=== PATIENT | female | born 1930 | race Caucasian/White ===

== ENCOUNTER 2016-04-04 15:29 | Emergency (ER) | payer MEDICARE ==
[~2016-04-04] VITALS: Wt 59.0 kg
[~2016-04-04 15:29] MED LIST: BACITRACIN 500U30 GM PO; BACTROBAN21 NAS; CALCIUM + D 5001 TAB PO; CENTRUM COMPLE1 EACH PO; CENTRUM SILVER1 TA1 PO; CIPROFLOXACIN500 MG PO; COLACE100 MG PO; CYCLOBENZAPRINE10 MG PO; DULCOLAX5 MG PO; FISH OIL1 IU PO; FISH OIL500 M1 PO; FOSAMAX70 MG PO; FUROSEMIDE40 MG PO; KLOR-CON 1010 MEQ PO; LISINOPRIL2.5 MG PO; LISINOPRIL20 MG PO; LISINOPRIL5 MG PO; LYRICA50 MG; MOM30 M1; MOTRIN IB200 MG PO; Motrin,Rufen800 MG PO; NEXIUM; REQUIP1 MG PO; SELEGILINE HCL5 MG PO; SERTRALINE50 MG PO; TYLENOL W/CODEI1 TA2; VICODIN 5/500 505 MG PO; VITAMIN D1000 IU PO; VITAMIN D5000 I3 PO; ZOFRAN ODT4 MG SL
[2016-04-04] MEDS ORDERED: LISINOPRIL-HYDR1 TAB PO (15:42)
[2016-04-04] MEDS ORDERED: OSTEO BI-FLEX1 EAC2 PO (15:43)
[2016-04-04 16:21] LABS: BILIRUBIN NEGATIVE (NEGATIVE); BLOOD NEGATIVE (NEGATIVE); CLARITY CLEAR (CLEAR); COLOR YELLOW (YELLOW); GLUCOSE NEGATIVE (NEGATIVE); KETONE NEGATIVE (NEGATIVE); LEUKO ESTERASE NEGATIVE (NEGATIVE); NITRITE NEGATIVE (NEGATIVE); PH 5.5 (5.0-9.0); PROTEIN NEGATIVE (NEGATIVE); UROBILINOGEN 0.2 E.U./dl (0.2-1.0)
[2016-04-04 16:33] LABS: URINE REFLEX COMMENT NO (NO)
[2016-04-04 16:53] LABS: BASO % 0.1 % (0.0-1.0); EOS # 0.1 10*3/uL (0.0-0.4); HEMATOCRIT 41.8 % (37.0-47.0); LYMPH # 1.8 10*3/uL (1.3-4.4); LYMPH % 25.6 % (27.0-41.0); MEAN CELL VOLUME 97.4 fl (81.0-99.0); MEAN CORPUSCULAR HGB 32.6 pg (27.0-31.0); MEAN CORPUSCULAR HGB CONC 33.5 g/dl (33.0-37.0); MEAN PLATELET VOLUME 9.8 fl (9.6-12.3); MONO # 0.5 10*3/uL (0.1-1.0); MONO % 6.9 % (3.0-9.0); NEUT # 4.7 10*3/uL (2.3-7.9); NEUT % 66.1 % (47.0-73.0); NUCLEATED RED BLOOD CELL 0.3 % (0.0-0.0); PLATELET COUNT AUTOMATED 191 10*3/uL (130-400); RED BLOOD COUNT 4.29 10*6/uL (4.10-5.10); RED CELL DISTRI WIDTH 13.1 % (0-14.5); WHITE BLOOD COUNT 7.1 10*3/uL (4.8-10.8)
[2016-04-04 17:04] LABS: INTERNATIONAL NORM RATIO 0.9 (2.0-3.5)
[2016-04-04 17:08] LABS: ALBUMIN 3.1 gm/dl (3.1-4.5); ALKALINE PHOSPHATASE 73 U/L (45-117); BILIRUBIN, TOTAL 0.7 mg/dl (0.2-1.0); BUN 26 mg/dl (7-24); CARBON DIOXIDE 29 mmol/L (21-32); CHLORIDE 101 mmol/L (98-107); EST GLOM FILT AFRICAN AMERICAN > 60 ml/min; GLUCOSE 83 mg/dL (65-99); MAGNESIUM 2.4 mg/dL (1.5-2.1); SGOT/AST 28 IU/L (3-35); SGPT/ALT 36 U/L (12-78); SODIUM 139 mmol/L (136-145); TOTAL PROTEIN 6.7 gm/dL (6.4-8.2)
[2016-04-04 20:32] VITALS: BP 122/68
== END 2016-04-04 21:50 | disposition short-term general hospital (02) ==
LOC: ED 15:29
PROVIDERS: Student in an Organized Health Care Education/Training Program
DX: I44.2 Atrioventricular block, complete (principal); T68.XXXA Hypothermia, initial encounter; Z90.49 Acquired absence of other specified parts of digestive tract; Z88.5 Allergy status to narcotic agent

== ENCOUNTER 2016-06-05 07:39 | Inpatient (IN) | payer MEDICARE ==
[~2016-06-05] VITALS: Ht 167.6 cm; Wt 64.4 kg
--- NOTE | ~2016-06-05 | PROC NOTE ---
[place], [place] PROCEDURE NOTE NAME: BASHIR BAPTISTE [facility] #: [id number] UNIT #: [id number] ROOM: 420 DOCTOR: ROBINSON RIVAS BIRTHDATE: [birth year] DOS: PROCEDURE: Modified barium swallow. BACKGROUND HISTORY AND MEDICAL HISTORY: The patient is a pleasant 86-year-old female referred for modified barium swallow due to a history of Parkinson's, secondary diagnosis of dehydration, primary diagnosis of metabolic encephalopathy. The patient also has a history of dysphagia and malnutrition, and is currently on a regular diet. She was seen at bedside with coughing and choking on thin liquids and very slow oral prep and mastication with a delay in the trigger of her pharyngeal swallow. METHODS AND MATERIALS: The patient was viewed in the lateral plane. The study was done in conjunction with Dr. Olivarez and patient was seated upright in a wheelchair. She was able to hold a cup and drink via straw. The patient was administered thin liquid via teaspoon and thin liquid via straw and single and sequential sip as well as applesauce coated with barium paste and a piece of bread coated with barium paste. ORAL PHASE: The patient demonstrated mildly slow ability to form a cohesive bolus with moderately reduced bolus cohesion and the bolus was reduced and controlled as she posteriorly transferred it from the oral phase to the pharyngeal phase where it fell into the vallecula with a swallow triggered at the level of the vallecula. There was no oral residue. The patient demonstrated adequate mastication on solid, it was mildly slow. PHARYNGEAL PHASE: The patient triggered the swallow at the level of the vallecula unless there was a less than 2.0-second delay. The patient demonstrated mildly decreased laryngeal elevation, but no penetration or aspiration was noted as the airway closure was adequate and effective. The patient demonstrated a natural chin tuck posture with her head forward with the straw, which probably added to airway protection. RECOMMENDATIONS AND IMPRESSION: It is recommended that patient receive all liquids via straw in her natural chin tuck position with her seated upright to approximate a 90-degree angle as closely as possible. It is recommended she take single sips out of a straw of liquids. It is also recommended she receive a mechanical soft diet as her mastication is slow and because of her history and Parkinson's disease, she is at risk for fatigue and breakdown of her swallow with effortful chewing. The patient is a candidate for speech therapy. It is recommended that she be seen by speech therapy for oral motor especially tongue base and laryngeal excursion exercises. Thank you for this referral. [place], [place] PROCEDURE NOTE NAME: BASHIR BAPTISTE UNIT #: [id number] ROOM: [facility] DOCTOR: ROBINSON RIVAS BIRTHDATE: [birth year] ROBINSON RIVAS CM:PROCNOTE:PROCEDURE NOTE [id number] ROBINSON RIVAS
[~2016-06-05 07:39] MED LIST changes: +LISINOPRIL-HYDR1 TAB PO; +OSTEO BI-FLEX1 EAC2 PO
[2016-06-05] MEDS ORDERED: LISINOPRIL10 M1 PO (07:46)
[2016-06-05] MEDS ORDERED: HYDR25T PO (07:47)
[2016-06-05 08:25] LABS: BASO % 0.3 % (0.0-1.0); EOS # 0.1 10*3/uL (0.0-0.4); EOS % 0.9 % (1.0-4.0); HEMATOCRIT 39.1 % (37.0-47.0); HEMOGLOBIN 13.2 g/dl (12.0-16.0); LYMPH # 2.1 10*3/uL (1.3-4.4); LYMPH % 22.6 % (27.0-41.0); MEAN CELL VOLUME 96.3 fl (81.0-99.0); MEAN CORPUSCULAR HGB 32.5 pg (27.0-31.0); MEAN CORPUSCULAR HGB CONC 33.8 g/dl (33.0-37.0); MEAN PLATELET VOLUME 9.4 fl (9.6-12.3); MONO # 0.7 10*3/uL (0.1-1.0); MONO % 7.2 % (3.0-9.0); NEUT # 6.4 10*3/uL (2.3-7.9); NEUT % 68.6 % (47.0-73.0); PLATELET COUNT AUTOMATED 175 10*3/uL (130-400); RED BLOOD COUNT 4.06 10*6/uL (4.10-5.10); RED CELL DISTRI WIDTH 13.7 % (0-14.5); WHITE BLOOD COUNT 9.3 10*3/uL (4.8-10.8)
[2016-06-05 08:34] LABS: PROTHROMBIN TIME 10.2 SECONDS (9.0-12.4)
[2016-06-05 08:42] LABS: ALKALINE PHOSPHATASE 87 U/L (45-117); BILIRUBIN, TOTAL 0.6 mg/dl (0.2-1.0); BUN 25 mg/dl (7-24); C-REACTIVE PROTEIN 0.71 MG/DL (0-0.3); CARBON DIOXIDE 31 mmol/L (21-32); CHLORIDE 100 mmol/L (98-107); CPK 65 U/L (26-192); EST GLOM FILT AFRICAN AMERICAN > 60 ml/min; GLUCOSE 81 mg/dL (65-99); MAGNESIUM 2.2 mg/dL (1.5-2.1); POTASSIUM 4.1 mmol/L (3.5-5.1); SGOT/AST 35 IU/L (3-35); SGPT/ALT 42 U/L (12-78); SODIUM 140 mmol/L (136-145); TOTAL PROTEIN 6.7 gm/dL (6.4-8.2); TROPONIN I 0.015 ng/ml (<0.045)
[2016-06-05 08:45] LABS: CKMB 12.4 ng/ml (0.5-3.6)
[2016-06-05 10:20] LABS: BILIRUBIN NEGATIVE (NEGATIVE); BLOOD TRACE-INTACT (NEGATIVE); CLARITY CLEAR (CLEAR); COLOR YELLOW (YELLOW); GLUCOSE NEGATIVE (NEGATIVE); KETONE NEGATIVE (NEGATIVE); LEUKO ESTERASE TRACE (NEGATIVE); NITRITE NEGATIVE (NEGATIVE); PROTEIN NEGATIVE (NEGATIVE); SPECIFIC GRAVITY <= 1.005 (1.005-1.030); UROBILINOGEN 0.2 E.U./dl (0.2-1.0)
[2016-06-05 10:27] LABS: EPITHELIAL CELLS 0-2; RBC 0-2 rbc/hpf (0-2); URINE REFLEX COMMENT YES (NO)
[2016-06-05 12:23] LABS: TROPONIN I 0.019 ng/ml (<0.045)
[2016-06-05 12:27] LABS: CKMB 10.9 ng/ml (0.5-3.6)
[2016-06-05] MEDS ORDERED: RESTASIS OU (12:53)
[2016-06-06 00:44] LABS: TROPONIN I 0.021 ng/ml (<0.045)
[2016-06-06 00:48] LABS: CKMB 6.1 ng/ml (0.5-3.6)
[2016-06-06 04:33] LABS: BASO % 0.1 % (0.0-1.0); EOS % 0.4 % (1.0-4.0); HEMATOCRIT 33.9 % (37.0-47.0); HEMOGLOBIN 11.6 g/dl (12.0-16.0); LYMPH # 1.9 10*3/uL (1.3-4.4); LYMPH % 27.4 % (27.0-41.0); MEAN CELL VOLUME 96.3 fl (81.0-99.0); MEAN CORPUSCULAR HGB CONC 34.2 g/dl (33.0-37.0); MEAN PLATELET VOLUME 8.8 fl (9.6-12.3); MONO # 0.7 10*3/uL (0.1-1.0); MONO % 9.4 % (3.0-9.0); NEUT # 4.4 10*3/uL (2.3-7.9); NEUT % 62.3 % (47.0-73.0); PLATELET COUNT AUTOMATED 151 10*3/uL (130-400); RED BLOOD COUNT 3.52 10*6/uL (4.10-5.10); WHITE BLOOD COUNT 7.1 10*3/uL (4.8-10.8)
[2016-06-06 05:02] LABS: ALBUMIN 2.5 gm/dl (3.1-4.5); ALKALINE PHOSPHATASE 75 U/L (45-117); BUN 17 mg/dl (7-24); CARBON DIOXIDE 27 mmol/L (21-32); CHLORIDE 106 mmol/L (98-107); CHOLESTEROL 207 mg/dL (<200); EST GLOM FILT AFRICAN AMERICAN > 60 ml/min; FREE T4 1.08 ng/dl (0.76-1.46); GLUCOSE 74 mg/dL (65-99); HDL CHOLESTEROL 55 mg/dl (40-60); LDL CHOLESTEROL 124 mg/dL (9-159); PHOSPHOROUS 2.9 mg/dL (2.5-4.9); POTASSIUM 3.9 mmol/L (3.5-5.1); SGOT/AST 28 IU/L (3-35); SGPT/ALT 32 U/L (12-78); SODIUM 143 mmol/L (136-145); TOTAL PROTEIN 5.6 gm/dL (6.4-8.2); TRIGLYCERIDES 140 mg/dl (<150); VLDL CHOLESTEROL 28 mg/dL (6-40)
[2016-06-06 05:50] LABS: HEMOGLOBIN A1c 5.4 % (4.8-5.6)
[2016-06-06 06:10] LABS: FOLIC ACID 22.6 ng/mL (>5.38); VITAMIN D, 25-HYDROXY 29.8 ng/mL (30-100)
[2016-06-06 06:23] LABS: PROTHROMBIN TIME 10.6 SECONDS (9.0-12.4)
[2016-06-07 06:04] LABS: BASO % 0.3 % (0.0-1.0); EOS # 0.1 10*3/uL (0.0-0.4); EOS % 1.1 % (1.0-4.0); HEMATOCRIT 34.1 % (37.0-47.0); HEMOGLOBIN 11.4 g/dl (12.0-16.0); LYMPH # 2.2 10*3/uL (1.3-4.4); LYMPH % 28.9 % (27.0-41.0); MEAN CELL VOLUME 97.2 fl (81.0-99.0); MEAN CORPUSCULAR HGB 32.5 pg (27.0-31.0); MEAN CORPUSCULAR HGB CONC 33.4 g/dl (33.0-37.0); MEAN PLATELET VOLUME 9.7 fl (9.6-12.3); MONO # 0.7 10*3/uL (0.1-1.0); MONO % 8.8 % (3.0-9.0); NEUT # 4.5 10*3/uL (2.3-7.9); NEUT % 60.6 % (47.0-73.0); PLATELET COUNT AUTOMATED 154 10*3/uL (130-400); RED BLOOD COUNT 3.51 10*6/uL (4.10-5.10); RED CELL DISTRI WIDTH 13.9 % (0-14.5); WHITE BLOOD COUNT 7.5 10*3/uL (4.8-10.8)
[2016-06-07 06:05] LABS: ALBUMIN 2.6 gm/dl (3.1-4.5); ALKALINE PHOSPHATASE 73 U/L (45-117); BILIRUBIN, TOTAL 1.2 mg/dl (0.2-1.0); BUN 15 mg/dl (7-24); CARBON DIOXIDE 26 mmol/L (21-32); CHLORIDE 104 mmol/L (98-107); EST GLOM FILT AFRICAN AMERICAN > 60 ml/min; GLUCOSE 66 mg/dL (65-99); POTASSIUM 3.4 mmol/L (3.5-5.1); SGOT/AST 30 IU/L (3-35); SGPT/ALT 32 U/L (12-78); SODIUM 142 mmol/L (136-145); TOTAL PROTEIN 5.9 gm/dL (6.4-8.2)
[2016-06-08 06:44] LABS: BASO % 0.3 % (0.0-1.0); EOS # 0.2 10*3/uL (0.0-0.4); EOS % 2.4 % (1.0-4.0); HEMATOCRIT 30.9 % (37.0-47.0); HEMOGLOBIN 10.5 g/dl (12.0-16.0); LYMPH % 32.1 % (27.0-41.0); MEAN CORPUSCULAR HGB 32.6 pg (27.0-31.0); MONO # 0.6 10*3/uL (0.1-1.0); MONO % 9.7 % (3.0-9.0); NEUT # 3.5 10*3/uL (2.3-7.9); PLATELET COUNT AUTOMATED 142 10*3/uL (130-400); RED BLOOD COUNT 3.22 10*6/uL (4.10-5.10); RED CELL DISTRI WIDTH 13.8 % (0-14.5); WHITE BLOOD COUNT 6.4 10*3/uL (4.8-10.8)
[2016-06-08 06:58] LABS: ALBUMIN 2.4 gm/dl (3.1-4.5); ALKALINE PHOSPHATASE 64 U/L (45-117); BILIRUBIN, TOTAL 0.7 mg/dl (0.2-1.0); BUN 13 mg/dl (7-24); CARBON DIOXIDE 27 mmol/L (21-32); CHLORIDE 110 mmol/L (98-107); EST GLOM FILT AFRICAN AMERICAN > 60 ml/min; GLUCOSE 90 mg/dL (65-99); POTASSIUM 3.3 mmol/L (3.5-5.1); SGOT/AST 25 IU/L (3-35); SGPT/ALT 30 U/L (12-78); SODIUM 145 mmol/L (136-145); TOTAL PROTEIN 5.6 gm/dL (6.4-8.2)
[2016-06-08] MEDS ORDERED: DOXYCYCLINE100 M3 PO (10:36)
== END 2016-06-08 19:50 | disposition home health service (06) | DRG 922 ==
LOC: ED 07:39 → ICCU 10:46 → EDHOLD 10:46 → 4E 10:46 → 5E 10:46 → ICCU 13:30 → 4E 06-07 13:49
PROVIDERS: Emergency Medicine; Hospitalist; Internal Medicine
PROC: BD1BYZZ Fluoroscopy of Mouth/Oropharynx using Other Contrast (ICD-10-PCS; principal; 2016-06-07)
DX: T68.XXXA Hypothermia, initial encounter (principal); G93.41 Metabolic encephalopathy; E43 Unspecified severe protein-calorie malnutrition; E86.0 Dehydration; G20 Parkinson's disease; D64.9 Anemia, unspecified; R13.10 Dysphagia, unspecified; E78.5 Hyperlipidemia, unspecified; E55.9 Vitamin D deficiency, unspecified; K59.00 Constipation, unspecified; R62.7 Adult failure to thrive; E87.6 Hypokalemia; Z95.0 Presence of cardiac pacemaker; Z90.49 Acquired absence of other specified parts of digestive tract; Z83.3 Family history of diabetes mellitus; Z82.49 Family history of ischemic heart disease and other diseases of the circulatory system; Z79.1 Long term (current) use of non-steroidal anti-inflammatories (NSAID); Z68.21 Body mass index [BMI] 21.0-21.9, adult; Z79.899 Other long term (current) drug therapy

== ENCOUNTER 2016-08-26 10:21 | Inpatient (IN) | payer MEDICARE ==
[~2016-08-26] VITALS: Ht 167.6 cm; Wt 63.0 kg
--- NOTE | ~2016-08-26 | CON ---
[place], [place] REPORT OF CONSULTATION NAME: BASHIR BAPTISTE [facility] #: [id number] UNIT #: [id number] ROOM: 427 DOCTOR: JAILENE JURADO MD BIRTHDATE: [birth year] DOS: 08/31/2016 REASON FOR CONSULTATION: Cough, dyspnea, abnormal echocardiogram. HISTORY OF PRESENT ILLNESS: The patient is an 86-year-old woman who had no previous history of heart disease until she presented with fatigue, confusion and dyspnea in 03/2016. She was seen in the Emergency Room at [facility] where she was found to be in complete heart block. She was transferred to the [facility] in [place] and had a pacemaker inserted. Review of her chest x-ray shows that she does have a dual chamber pacemaker in place. Further details of that workup are not yet available to me. She was hospitalized on this occasion because of worsening dyspnea. According to chart records, she had had a dry cough for at least a week without any fevers or chills. Her daughter brought her into the hospital and she was admitted. Her initial chest x-ray showed mild cardiac enlargement with subsegmental atelectasis at the left base, but no definite infiltrates. She was afebrile on admission and had a normal white count, but she was felt to have a pneumonitis and was treated accordingly. Unfortunately, her cough persisted. She was seen by the [employer] rep, Dr. Holden, who was concerned that she might have pneumonia and continued antibiotic therapy. Despite adequate therapy for community-acquired pneumonia, she continued to have a cough and dyspnea. There was some concern that she was aspirating and she was placed on thickened fluids. An echocardiogram was obtained on 08/30/2016. This is a very technically difficult and limited examination. However, it did show that the left ventricle appeared to be moderately dilated with akinesis of the anterior and posterior septum as well as the inferior wall and apex. Overall, left ventricular systolic function was moderately to severely impaired. Diastolic function could not be fully assessed, but she did appear to have at least stage II diastolic dysfunction. In addition, she had a dilated left atrium, aortic sclerosis with possible stenosis, rarhtklr-jf-yohcuy mitral insufficiency and mild tricuspid insufficiency with mildly elevated right ventricular systolic pressures. The inferior vena cava was also dilated with decreased inspiratory collapse. The patient was placed on intravenous diuretics on 08/30/2016 and diuresed considerably. She has a negative 6 liter fluid balance for the last 48 hours. We were asked to assist in her care. Please note that the patient does have Parkinson's disease with bradykinesia and a very flat affect. Because of this, much of the history was obtained from the records. PAST MEDICAL HISTORY: Includes 1. Essential hypertension. 2. History of complete heart block documented 03/2016. The patient underwent placement of a dual chamber pacemaker at the [facility] in [place] at that time. 3. Parkinson's disease. 4. Vitamin D deficiency. 5. Hyperlipidemia. 6. History of appendectomy, knee replacement and tonsillectomy. 7. Echocardiogram 08/30/2016 technically difficult limited study; however, the [place], [place] REPORT OF CONSULTATION NAME: BASHIR BAPTISTE UNIT #: [id number] ROOM: [facility] DOCTOR: JAILENE JURADO MD BIRTHDATE: [birth year] left ventricle does appear to shows septal and inferior wall akinesis with apical akinesis and moderately to severely impaired left ventricular systolic function. Ejection fraction could not be accurately estimated, but appears to be decreased. There was stage 2 diastolic dysfunction with moderate to severe mitral insufficiency as well as aortic sclerosis with possible stenosis. MEDICATIONS: Prior to admission included oxygen by home nasal cannula, Restasis eyedrops daily, carbidopa with levodopa 1 tablet q. 8 hours, cholecalciferol 1000 units daily, glucosamine with chondroitin (Osteo Bi-Flex) daily, ibuprofen 400 mg q. 6 hours p.r.n., multivitamin with minerals daily, omega-3 fish oil 500 mg daily and ropinirole 0.5 mg at bedtime. ALLERGIES: The chart shows that the patient does have an adverse reaction to opiate medications and narcotics. FAMILY HISTORY: Both parents are . Her father did have some form of heart disease. REVIEW OF SYSTEMS: The patient denies diplopia. She does move very slowly. She denies focal weakness, however. She is generally weak. She denies nausea or vomiting. She denies fevers, chills or sweats. She has had a persistent cough and states that her throat hurts from all the coughing she has done. The cough is essentially nonproductive. She denies any chest pain or palpitations. She denies lightheadedness or syncope. She denies orthopnea or PND. She denies any fevers, chills or sweats. She denies abdominal pain, diarrhea or constipation. She denies any change in bowel or bladder habits and denies blood from her urine or stools. She denies bleeding from her nose or mouth. She denies any peripheral edema. Remainder of the review of systems is negative except as noted above. SOCIAL HISTORY: The patient does not consume alcohol or cigarettes. She lives with her daughter. PHYSICAL EXAMINATION: GENERAL: The patient is an elderly white female who has a very flat affect. She answers questions very slowly and appears to have a poor fund of knowledge. VITAL SIGNS: Pulse is 88 and regular, blood pressure is 144/83. She is afebrile. She weighs 63.0 kg and has a body mass index of 22.4. HEENT: Normocephalic, atraumatic. Extraocular muscles are intact. Sclerae are clear. Pupils are round and react to light. The oral mucosa is moist. Tongue is midline. NECK: Supple. She has jugular distention to the middle of the neck with hepatojugular reflux present. There are no neck or supraclavicular masses and no thyromegaly. LUNGS: Respirations are unlabored. Her chest has decreased breath sounds at the bases with few scattered rales bilaterally. She has no presacral edema or chest wall tenderness. CARDIOVASCULAR: Her heart has a regular rhythm. She has a fourth heart sound and a soft third heart sound. She has grade 2/6 holosystolic murmur at the apex. The PMI was not felt. There was no precordial heave, lift or thrill. [place], [place] REPORT OF CONSULTATION NAME: BASHIR BAPTISTE UNIT #: [id number] ROOM: 427 DOCTOR: JAILENE JURADO MD BIRTHDATE: [birth year] ABDOMEN: Obese, but otherwise benign without masses, organomegaly or bruits. EXTREMITIES: Showed trace edema bilaterally. She does have multiple chronic stasis changes on her ankles. Peripheral pulses are diminished in the feet. LABORATORY DATA: Her electrocardiogram shows sinus rhythm with sinus tachycardia. She is 100%, atrial sensed and ventricular paced. Hemoglobin is 11.1, white count 5100, platelet count 268,000. Sodium is 142, potassium 3.5, BUN 44, creatinine 0.92. Troponin levels have been essentially normal, although they are not unmeasurable. TSH was 0.589. IMPRESSION: Abnormal echocardiogram. The study is very technically limited and difficult, but appears to show evidence for an inferoseptal myocardial infarction with poor left ventricular systolic function and severe mitral insufficiency. This certainly could account for chest congestion and cough. For now, I agree with diuresis. We will start her on a beta beulah and JAMARI inhibitor as tolerated by her symptoms. Once she has been better stabilized, we may consider doing a risk stratifying pharmacologic stress test. We will also request records from [facility]. I thank the hospitalist group for asking our advice regarding her care. JAILENE JURADO MD CM:CONSTR:REPORT OF CONSULTATION 1037 08/31/16 2353 interface
--- NOTE | ~2016-08-26 | PR ---
[place], [place] PROGRESS NOTE NAME: BASHIR BAPTISTE [facility] #: [id number] UNIT #: [id number] ROOM: 427 DOCTOR: RHONDA DÍAZ MD,JEFE BIRTHDATE: [birth year] DOS: 09/04/2016 SUBJECTIVE: She has been comfortably resting at this time on her bed. She was noted awake and alert. She does not have any signs of distress at this time. OBJECTIVE: VITAL SIGNS: Showed normal temperature, respirations 16, heart rate 58-79, blood pressure 131/58-134/78. Pulse oxygen saturation was noted as 97% saturation on 1 liter nasal cannula. HEENT: Shows no acute change. NECK: Supple. CARDIOVASCULAR: S1, S2 audible. LUNGS: Noted without any wheezing or crackles at the present time. ABDOMEN: Soft, nontender. LABORATORY DATA: BMP of the patient this morning noted BUN of 28, creatinine was normal. Potassium was 3.4. The chest x-ray that was done this morning shows, mild pulmonary venous congestion was noted with resolving pleural fluid on the right side, small left-sided pleural fluid was still noted. IMPRESSION: 1. The patient with resolving acute pneumonia. 2. Bilateral pleural fluid overload, which has been gradually improving. 3. History of parkinsonism. 4. Oropharyngeal dysphagia. PLAN OF TREATMENT: No intervention for the pleural fluid will be needed, it has been resolving already. Diuretic therapy should be given. Continue antibiotics, bronchodilator treatment plan and management. JEFE ELLIS MD CM:PNMARILUZ [id number] JEFE DÍAZ MD 09/04/161926 interface
--- NOTE | ~2016-08-26 | PR ---
[place], [place] PROGRESS NOTE NAME: BASHIR BAPTISTE [facility] #: [id number] UNIT #: [id number] ROOM: 427 DOCTOR: MARLYN DOMINGUEZ MD BIRTHDATE: [birth year] DOS: 09/04/2016 SUBJECTIVE: The patient is completely flat in bed, does not appear in distress. Denies any ongoing cardiac complaints. The patient's daughter is in the room. The patient appeared to be elderly, frail with severely limited functional capacity. OBJECTIVE: VITAL SIGNS: Blood pressure 128/60, heart rate 75, respiratory rate of 16, temperature 97.2. NECK: There is no evidence of JVD. HEART: S1, S2 with no rub. LUNGS: Decreased air movement. No fernando wheezing or rales. ABDOMEN: Soft, nontender, present bowel sounds. EXTREMITIES: Lower extremities, there is no edema. LABORATORY DATA: White count 10.9, hemoglobin 11.8, platelets 286,000. Potassium 3.4, creatinine 0.6, BUN 28, GFR more than 60%. ASSESSMENT AND PLAN: 1. History of Parkinson in a patient who is elderly, frail with severely limited functional capacity. 2. Sick sinus syndrome, status post pacemaker that appeared to be 100% paced. 3. Evidence of moderate left ventricular dysfunction in a patient who is not a candidate for any possible cardiac intervention at least at this time of her admission in view of her lung status. Stress test will be held off for now, medications will be continued as same. The patient can be discharged home from the cardiology point of view. Followup will be with Dr. May as an outpatient or in our [facility] on sooner basis within 2-4 weeks from discharge. In the meantime, we will continue with the patient's Aldactone, Coreg, lisinopril. If any change in medical status, especially with any cardiac symptoms, then we would consider stress test on a sooner basis. MARLYN DOMINGUEZ MD CM:PNTRANS [id number] MARLYN DOMINGUEZ MD 09/05/16 0003 interface
--- NOTE | ~2016-08-26 | PR ---
[place], [place] PROGRESS NOTE [id number] #: [id number] ROOM: 427 DOCTOR: JEFE CAVAZOS MD BIRTHDATE: [birth year] DOS: 08/31/2016 SUBJECTIVE: She has been noted comfortable at this time, more awake and alert. Diet has been modified of the patient because of the current dysphagia. She has not been noted with symptoms of chest pain. She was noted essentially coughing with clear liquids, which has been currently changed to nectar thick consistency. OBJECTIVE: VITAL SIGNS: Normal temperature, respiratory rate 18, heart rate of 88, blood pressure 144/83. HEENT: Showed no new changes. Head was atraumatic. CARDIOVASCULAR: S1, S2 audible. LUNGS: Noted for patient with decreased breaths in the lower portion of the lungs bilaterally. ABDOMEN: Soft, nontender. EXTREMITIES: Mild edema. LABORATORY DATA: CBC in the labs today, WBC count 11.1, hemoglobin 34.5. The platelet count was noted as normal. BMP this morning, BUN 44, creatinine was normal, glucose 164. Blood culture of the patient from the 6th of this month showed no bacterial growth. IMPRESSION: 1. The patient with resolving acute pneumonia. 2. Bilateral pleural fluid secondary to congestive heart failure, fluid overload for this patient with current medical management, sepsis and intravenous fluid aspiration. 3. History of parkinsonism as well. PLAN OF TREATMENT: Symptomatic management of pleural fluid of the patient, diuretic therapy for this patient, monitor kidney function of the patient and the respiratory status closely. Aspiration precaution. Continue antibiotic of the patient for the aspiration pneumonia. [place], [place] PROGRESS NOTE NAME: BASHIR BAPTISTE UNIT #: [id number] ROOM: 427 DOCTOR: JEFE CAVAZOS MD BIRTHDATE: [birth year] JEFE ELLIS MD CM:PNTRANS 1230 0014 JEFE DÍAZ MD 09/01/16 0013 interface
--- NOTE | ~2016-08-26 | CON ---
[place], [place] REPORT OF CONSULTATION NAME: BASHIR BAPTISTE [facility] #: [id number] UNIT #: [id number] ROOM: [place] [address] DOCTOR: JEFE CAVAZOS MD BIRTHDATE: [birth year] DOS: 08/29/2016 PULMONARY CONSULTATION REASON FOR CONSULTATION: Assess the patient for current acute respiratory distress with possibility of acute pneumonia. HISTORY OF PRESENT ILLNESS: The patient is an 86-year-old white female who has been admitted to the hospital on 08/26/2016. The patient reported symptoms of having dry cough for this patient, which has been present for about 1 week associated symptoms of shortness of breath. The symptoms the patient has been noted progressive, the patient is requiring assessment in the Emergency Room and subsequent hospitalization in this hospital. She has been currently treated on fifth floor for this patient for the medical management of acute pneumonia for this patient and other problems. The patient has been currently assessed, was noted with somewhat labored breathing. The patient with tachypnea. The patient noted awake, answered the questions to some extent. She does have a cough, which has been noted nonproductive. There were no symptoms of chest pain or hemoptysis. REVIEW OF SYSTEMS: CONSTITUTIONAL: Fatigue and tiredness described without symptoms of fever or chills. EYES: Denies any burning, redness, or tenderness. EARS, NOSE, THROAT SYMPTOMS: Denies sore throat, hoarseness, otalgia, postnasal drainage. CARDIOVASCULAR: Denies anginal pain, edema, pain of the lower extremities. GASTROINTESTINAL: Denies dysphagia, nausea, vomiting, diarrhea, abdominal pain, hematemesis, melena or hematochezia. SKIN: Denies lesions or rashes. CENTRAL NERVOUS SYSTEM: Generalized weakness and fatigue, was noted without symptoms of focal neurologic deficits. Remaining systems were reviewed with the patient, they were noted all negative. PAST MEDICAL HISTORY: Reported as, 1. Essential hypertension. 2. History of complete heart block. 3. Parkinsonism. 4. Vitamin D deficiency. PAST SURGICAL HISTORY: Reported as, 1. Appendectomy. 2. Past ENT surgery, details were unknown. 3. Knee replacement in the patient, site unknown. 4. History of tonsillectomy. SOCIAL HISTORY: The patient was noted nonsmoker lifetime. There was no history of alcohol use, illicit drug use, or tobacco use. FAMILY HISTORY: The patient's both parents have been . For this patient, mother [place], [place] REPORT OF CONSULTATION [facility]: [id number] [facility] #: [id number] ROOM: [place] [address] DOCTOR: RHONDA DÍAZ MD,JEFE BIRTHDATE: [birth year] from complications of diabetes. Father from complication related to heart disease. HOME MEDICATIONS: Noted as use of Sinemet, vitamin D, ibuprofen, multivitamin, omega-3 fatty acid, Requip and other p.r.n. medication used. DRUG ALLERGIES: NOTED ALLERGY TO NARCOTICS IN THIS PATIENT CAUSING CONFUSION. PHYSICAL EXAMINATION: GENERAL: This 86-year-old white female who has been currently noted to be awake at this time. VITAL SIGNS: The patient's height was recorded as 5 feet 6 inches, weight of 138 pounds, BMI 22.4. Vital signs of the patient, which has been recorded shows a temperature of 99.2 degrees Fahrenheit, normal temperature, respiratory rate 26-20, heart rate of 103-107, sinus tachycardia, blood pressure 138/77-152/98. Pulse oxygen saturation of the patient on 2 liters nasal cannula was 90-92% saturation. HEENT: Shows head was atraumatic. Eyes nonicterus. Oral mucosa was moist. NECK: Supple. CARDIOVASCULAR: S1, S2 audible. LUNGS: The patient was noted without any wheezing or crackles at this time. Breaths are noted mildly diminished bilaterally. ABDOMEN: Soft, flat, nontender, bowel sounds present. EXTREMITIES: Show no edema, clubbing, cyanosis. CENTRAL NERVOUS SYSTEM: Cannot be fully assessed in the patient with current acute illness of this patient. However, there were no reported focal deficits in this patient. The patient is able to move upper and lower extremities at her own will. SKIN: Does not show lesions or rashes. MUSCULOSKELETAL: Does not show any gross deformities. LABORATORY DATA: Admission CBC of the patient on 08/26 was noted with WBC count of 8.0, hemoglobin 12.2, hematocrit 36.7, platelet count was normal. Lactic acid 1.3 on 08/26. On 08/26, BMP of the patient noted with normal BUN and creatinine and other electrolytes. Urinalysis of the patient on 08/26 was noted with negative leukocyte esterase of the patient or nitrites. CBC of the patient of 08/27 patient shows hemoglobin 10.4, hematocrit 32.0, platelet count and WBC count remains normal. BMP of the patient on 08/27, glucose 143, normal BUN and creatinine, other electrolytes grossly normal as well. Blood culture for the patient from the 3rd of this month shows no bacterial growth. Arterial blood gas that was obtained today for this patient 3.5 liters nasal cannula, pH of 7.37, pCO2 of 39, pO2 of 103. The CMP, which was also obtained for the patient at the time of the illness shows BUN 31, creatinine was normal, glucose 152. The troponin noted minimally elevated at 0.50. CBC of the patient this morning, WBC count 9.2, hemoglobin 11.3, hematocrit 35.2, platelet count 288,000. The chest x-ray of the patient was also done this morning for the patient with the current acute illness does not show any acute pulmonary infiltration. She has a chest x-ray, which was done on 08/26/2016 for the patient shows small area of [place], [place] REPORT OF CONSULTATION NAME: BASHIR BAPTISTE UNIT #: [id number] ROOM: [place] [address] DOCTOR: RHONDA DÍAZ MD,JEFE BIRTHDATE: [birth year] left lower lobe subsegmental atelectasis. IMPRESSION: 1. The patient has been currently noted with mild respiratory distress. The patient with mild sinus tachycardia for this patient with some respiratory distress, currently being treated for this patient for presumed acute pneumonia. However, the one view chest x-ray for the patient does not show any significant pulmonary infiltration at this time, ____ pneumonia for this patient, lower lung cannot be completely excluded. 2. This patient was currently also known and treated for acute exacerbation of bronchial asthma, receiving steroids for this patient and the bronchodilators. Possibility of ____ infection for this patient or sepsis will be considered in the differential diagnoses, other parts of the body as well to be certainly excluded. PLAN OF MANAGEMENT: The patient has been planned for transfer to the Intensive Care Unit by the primary care physician. I will order 2 additional sets of blood cultures. I will be also ordering the urinalysis and culture to be repeated. Upon stabilization, the patient should get a PA lateral view chest x-ray of the patient for more accurate assessment of the patient of any hidden pulmonary infiltration could be done tomorrow. Continuation of the antibiotic for this patient at this time, no additional changes need to be made. Further treatment changes will be done based on the progression of the illness. Usual care, other supportive therapy, plan of management, additional changes in the treatment will be ordered based on the progression of the illness. Oxygen supplementation ordered to be continued for the patient to maintain saturation of 92% or greater. Support with the BiPAP for the patient could be applied in case of any further additional respiratory distress. The patient code status noted full code for this patient at this time. All the aggressive measures, the patient's medical management will be taken. Monitoring the hemodynamics closely. Thanks for allowing me to participate in the care of this patient. JEFE ELLIS MD CM:CONSTR:REPORT OF CONSULTATION 1213 08/30/16 0329 interface
--- NOTE | ~2016-08-26 | PR ---
[place], [place] PROGRESS NOTE NAME: BASHIR BAPTISTE UNIT #: [id number] ROOM: 427 DOCTOR: JEFE CAVAZOS MD BIRTHDATE: [birth year] DOS: 09/03/2016 PROGRESS NOTE SUBJECTIVE: She has been noted comfortable at this time, resting on the bed, the daughter was present in the room with the patient. She has been using oxygen supplementation this morning, nasal cannula. OBJECTIVE: VITAL SIGNS: Normal temperature, respiratory rate 18, heart rate 65, blood pressure 106/69. Intake 790, output 500 mL. The pulse oxygen saturation on 2 liters nasal cannula 98% saturation. HEENT: Showed no new change. NECK: Supple. CARDIOVASCULAR: S1, S2 audible. LUNGS: Moderate decreased breaths are noted in the lower portion of the lungs bilaterally. ABDOMEN: Soft, nontender. LABORATORY DATA: BMP: BUN 40, creatinine was normal, glucose was normal. CBC this morning, WBC count 10.9, hemoglobin 11.8, hematocrit 36.2, platelet count was noted as normal. IMPRESSION: 1. Resolving acute aspiration pneumonia for the patient with fluid overload. The patient had acute respiratory failure. 2. Acute tracheobronchitis. PLAN OF TREATMENT: No changes in plan of management at this time. The patient has been scheduled for the Lexiscan to be done tomorrow morning that has been ordered by the Cardiology Services. In the meantime, continue oxygen supplementation, maintain saturation 92% or greater. Obtain a chest x-ray of the patient in the morning to reassess the pleural fluids. Other supportive plan and management to be continued. [place], [place] PROGRESS NOTE NAME: BASHIR BAPTISTE UNIT #: [id number] ROOM: 427 DOCTOR: JEFE CAVAZOS MD BIRTHDATE: [birth year] JEFE ELLIS MD CM:PNTRANS [phone] JEFE DÍAZ MD 09/04/16 013 interface
--- NOTE | ~2016-08-26 | PR ---
[place], [place] PROGRESS NOTE NAME: BASHIR BAPTISTE [facility] #: [id number] UNIT #: [id number] ROOM: 427 DOCTOR: RHONDA DÍAZ MD,JEFE BIRTHDATE: [birth year] DOS: 09/01/2016 SUBJECTIVE: She has been noted fully awake and alert, feeding herself for this patient with significant improvement continued in the overall physical status and mental status. She denies symptoms of coughing or chest pain. OBJECTIVE: VITAL SIGNS: Normal temperature, respiratory rate 18, heart rate 81, blood pressure 132/81. Pulse oxygen saturation on 2 liters nasal cannula 97% saturation. HEENT: Showed no new change. NECK: Supple. CARDIOVASCULAR: S1, S2 is audible. LUNGS: The patient was noted without any wheeze or crackles at this time. ABDOMEN: Soft, nontender. IMPRESSION: 1. The patient with resolving acute respiratory status. The patient with acute pneumonia. 2. Bilateral pleural fluids were noted at this time for this patient on the chest x-ray the patient, as the patient was managed for the sepsis. 3. History of parkinsonism. PLAN OF TREATMENT: Obtain a chest x-ray, PA and lateral view of the patient to assess the patient for the progression of the pleural fluid. In the meantime, no other change in treatment needs to be done. The patient is responding to treatment in general and showing progressive improvement and resolution of the acute respiratory problems. JEFE ELLIS MD CM:PNTRANS [id number] JEFE DÍAZ MD 09/02/16 0104 interface
--- NOTE | ~2016-08-26 | PR ---
[place], [place] PROGRESS NOTE NAME: BASHIR BAPTISTE [facility] #: [id number] UNIT #: [id number] ROOM: 427 DOCTOR: RHONDA DÍAZ MD,JEFE BIRTHDATE: [birth year] DOS: 09/02/2016 SUBJECTIVE: The patient has been comfortably resting with ____ generalized weakness and fatigue. Denies any coughing, sputum expectoration, chest pain. Modified diet for the patient and speech therapy was continued for the dysphagia. OBJECTIVE: VITAL SIGNS: Normal temperature, respiratory rate 16, heart rate 77, blood pressure 136/73. Intake of the patient recorded as 495, output was 1000 mL. Pulse oxygen saturation at 2.5 L nasal cannula 100% saturation recorded. HEENT: Shows age-related changes. NECK: Supple. CARDIOVASCULAR: S1, S2 is audible. LUNGS: Without any wheeze or crackles at the present time. ABDOMEN: Soft, nontender. IMPRESSION: Resolving acute respiratory failure with resolving acute aspiration pneumonia progressively as well. Chest x-ray was done for the patient yesterday, 2-view was noted with marked improvement and resolution of previous infiltration and other abnormalities. PLAN OF TREATMENT: Continue current therapy. Plan and management is in progress without changes. Continue supportive therapy, plan of care and usual treatment. Supportive care. JEFE ELLIS MD CM:PNTRANS [id number] JEFE DÍAZ MD 09/02/16 1845 interface
--- NOTE | ~2016-08-26 | PR ---
[place], [place] PROGRESS NOTE NAME: BASHIR BAPTISTE [facility] #: [id number] UNIT #: [id number] ROOM: 427 DOCTOR: RHONDA DÍAZ MD,JEFE BIRTHDATE: [birth year] DOS: 08/30/2016 PULMONARY PROGRESS NOTE SUBJECTIVE: The patient remains in Intensive Care Unit. She was transferred yesterday for the medical management of acute sepsis. She is complaining of shortness of breath, cough has been noted ineffective to produce any sputum. She has been currently kept n.p.o. for the modified barium swallow for this patient and the speech assessment to be done at the bedside prior to the patient resuming her eating. She has not been noted any acute chest pain. OBJECTIVE: VITAL SIGNS: For the patient, which has been recorded shows the temperature noted normal, respiratory rate 24, heart rate 96, blood pressure 128/85. HEENT: Shows head was atraumatic. NECK: Supple. CARDIOVASCULAR: S1, S2 audible. LUNGS: Moderate decreased breath sounds, scattered crackles of the lungs. ABDOMEN: Soft, nontender. EXTREMITIES: Shows no edema. LABORATORY DATA: CBC of the patient 08/30, hemoglobin 10.9, hematocrit 32.8, WBC count was normal, platelet count was normal. CMP of the patient this morning, BUN 36, creatinine was normal, glucose 154. Lactic acid was elevated yesterday at 2.5 and repeated followup lactic acid of the patient was noted as normal. Chest x-ray of the patient that was done for the patient this morning, PA lateral view as I ordered was completed. It shows interval development of interstitial edema, underlying superimposed pneumonia for the patient can be completely excluded. IMPRESSION: 1. The patient with ____ acute congestive heart failure. 2. The patient with possibility of acute pneumonia from aspiration and sepsis. 3. History of parkinsonism. 4. Oropharyngeal dysphagia may be related to the underlying parkinsonism would be considered. PLAN OF TREATMENT: Monitor respiratory status closely. Diuretic therapy might be beneficial to help improve the congestive heart failure finding. Assess the congestive heart failure by the county engineer for the patient if not done. Continue current antibiotics. Monitor respiratory status. Consider bronchoscopy for the patient if the patient continues to have significant cough in the patient without any sputum expectoration in the next 2 or 3 days. Supportive plan and management and care. Usual treatment. [place], [place] PROGRESS NOTE NAME: BASHIR BAPTISTE UNIT #: [id number] ROOM: 427 DOCTOR: JEFE CAVAZOS MD BIRTHDATE: [birth year] JEFE ELLIS MD CM:PNTRANS [id number] JEFE DÍAZ MD 08/31/16 003 interface
--- NOTE | ~2016-08-26 | PR ---
[place], [place] PROGRESS NOTE NAME: BASHIR BAPTISTE [facility] #: [id number] UNIT #: [id number] ROOM: 427 DOCTOR: JAILENE JURADO MD BIRTHDATE: [birth year] DOS: 09/01/2016 SUBJECTIVE: The patient was seen at her bedside today, 09/01/2016 with her daughter in attendance. She is an 86-year-old woman who recently did undergo placement of a permanent DDD pacemaker at [facility] in [place] after presenting with severe bradycardia and low output symptoms. During that hospitalization, she did have an echocardiogram which showed normal left ventricular function. She presented to [facility] on this occasion with worsening cough and dyspnea. Treatment of bronchitis and pneumonitis did not improve her symptoms as much as anticipated and therefore Cardiology consultation was obtained. Her chest x-ray showed mild cardiac enlargement with subsegmental atelectasis, but no definite infiltrates. An echocardiogram was obtained on 08/30/2016. This was a technically difficult and limited examination, but did show that the left ventricle appeared to be moderately dilated with akinesis of the anterior and posterior septum as well as the inferior wall and apex. Overall, left ventricular systolic function was moderately to severely impaired and diastole could not be fully assessed. It did appear that the patient had at least stage 2 diastolic dysfunction. The left atrium was dilated and she had moderate to severe mitral insufficiency with mild tricuspid insufficiency and mildly elevated right ventricular systolic pressures. There was aortic sclerosis with possible aortic stenosis present, but this could not be adequately quantified. The patient has been diuresed and does seem to be breathing better. She is coughing less. I did review the records from her recent hospitalization in [place] and do note that her echocardiogram dated 04/05/2016 showed mild LVH with normal wall motion and systolic function and grade 1 diastolic dysfunction. Mitral insufficiency was described as being mild at that time. She did receive her DDD pacemaker on 04/05/2016. A [employer] device was utilized. She had no complications from the pacer insertion. PHYSICAL EXAMINATION: VITAL SIGNS: Today, her pulse is 77 and regular. Monitor shows that she is essentially 100% atrial sensed and ventricular paced. Blood pressure is 122/70. In and O is negative 6.5 liters for the last 72 hours. She weighs 62.95 kilograms as of 08/27 and has not been weighed since. HEENT: Normocephalic, atraumatic. Extraocular muscles are intact. Sclerae are clear. NECK: Supple. She does have mild jugular distention with hepatojugular reflux present. Carotids are full without bruits. LUNGS: Respirations are unlabored. She has a few rales at the bases. She has no presacral edema. HEART: Has a regular rhythm with distant tones. She has a fourth and a third heart sound. She has a grade 2/6 holosystolic murmur at the apex. ABDOMEN: Obese, but otherwise benign. EXTREMITIES: Showed trace edema bilaterally. LABORATORY STUDIES: Today showed sodium 139, potassium 3.9, chloride 101, BUN 48, creatinine 0.83. [place], [place] PROGRESS NOTE NAME: BASHIR BAPTISTE [facility] #: [id number] UNIT #: [id number] ROOM: [facility] DOCTOR: JAILENE JURADO MD BIRTHDATE: [birth year] ASSESSMENT AND PLAN: The patient appears to have developed a significant left ventricular dysfunction and mitral insufficiency in the time between her pacemaker insertion in March and now. It could mean that she had a silent myocardial infarction in the interim or this could be a pacemaker induced myopathy from 100% ventricular pacing. Ischemic cardiomyopathy seems more likely, but further evaluation will be required. I did discuss our options with the patient and her daughter. I think the next step would be to perform a pharmacologic myocardial perfusion study. If she shows extensive scarring without much reversible ischemia, then medical therapy would be continued. If she shows normal perfusion with global hypokinesis, she may be a candidate for an upgrade to ventricular resynchronization therapy. If she shows considerable ischemia, a cardiac catheterization for revascularization may be appropriate. For now, we will continue to manage her medically, but plan on a stress test this coming Sunday with further recommendations based on the results of her perfusion images. I thank the hospitalist physicians for asking our advice regarding her care. JAILENE JURADO MD CM:PNTRANS [id number] JAILENE JURADO MD 09/01/16 1441 interface
[~2016-08-26 10:21] MED LIST changes: +DOXYCYCLINE100 M3 PO; +HYDR25T PO; +LISINOPRIL10 M1 PO; +RESTASIS OU
[2016-08-26 10:35] VITALS: BP 136/82
[2016-08-26] MEDS ORDERED: CARBIDOPA/LEVOD1 TA1 PO (10:41)
[2016-08-26] MEDS ORDERED: RESTASIS 30 ML30 ML OP (10:41)
[2016-08-26 11:01] LABS: BASO % 0.2 % (0.0-1.0); EOS # 0.1 10*3/uL (0.0-0.4); EOS % 0.9 % (1.0-4.0); HEMATOCRIT 37.6 % (37.0-47.0); HEMOGLOBIN 12.2 g/dl (12.0-16.0); LYMPH # 1.2 10*3/uL (1.3-4.4); LYMPH % 15.1 % (27.0-41.0); MEAN CELL VOLUME 98.9 fl (81.0-99.0); MEAN CORPUSCULAR HGB 32.1 pg (27.0-31.0); MEAN CORPUSCULAR HGB CONC 32.4 g/dl (33.0-37.0); MEAN PLATELET VOLUME 8.7 fl (9.6-12.3); MONO # 0.8 10*3/uL (0.1-1.0); MONO % 9.8 % (3.0-9.0); NEUT # 5.9 10*3/uL (2.3-7.9); NEUT % 73.6 % (47.0-73.0); PLATELET COUNT AUTOMATED 289 10*3/uL (130-400); RED CELL DISTRI WIDTH 13.5 % (0-14.5)
[2016-08-26 11:17] LABS: ALBUMIN 3.3 gm/dl (3.1-4.5); ALKALINE PHOSPHATASE 85 U/L (45-117); BUN 21 mg/dl (7-24); CARBON DIOXIDE 27 mmol/L (21-32); CHLORIDE 105 mmol/L (98-107); EST GLOM FILT AFRICAN AMERICAN > 60 ml/min; GLUCOSE 102 mg/dL (65-99); MAGNESIUM 2.3 mg/dL (1.5-2.1); POTASSIUM 4.5 mmol/L (3.5-5.1); SGOT/AST 22 IU/L (3-35); SGPT/ALT 17 U/L (12-78); SODIUM 142 mmol/L (136-145); TROPONIN I 0.024 ng/ml (<0.045)
[2016-08-26 12:00] VITALS: BP 132/87
[2016-08-26 12:40] VITALS: BP 144/82
[2016-08-26 12:56] VITALS: BP 147/82
[2016-08-26 16:00] VITALS: BP 135/69
[2016-08-26 20:00] VITALS: BP 135/71
[2016-08-26 21:55] LABS: BILIRUBIN NEGATIVE (NEGATIVE); BLOOD TRACE-LYSED (NEGATIVE); CLARITY CLEAR (CLEAR); COLOR YELLOW (YELLOW); GLUCOSE NEGATIVE (NEGATIVE); KETONE NEGATIVE (NEGATIVE); LEUKO ESTERASE NEGATIVE (NEGATIVE); NITRITE NEGATIVE (NEGATIVE); PROTEIN NEGATIVE (NEGATIVE); UROBILINOGEN 0.2 E.U./dl (0.2-1.0)
[2016-08-26 22:02] LABS: BACTERIA TRACE; EPITHELIAL CELLS 0-2; URINE REFLEX COMMENT NO (NO); WBC 0-2 wbc/hpf (0-5)
[2016-08-27] VITALS: BP 128/64
[2016-08-27 06:14] LABS: HEMOGLOBIN 10.4 g/dl (12.0-16.0); LYMPH # 0.4 10*3/uL (1.3-4.4); LYMPH % 6.7 % (27.0-41.0); MEAN CELL VOLUME 98.2 fl (81.0-99.0); MEAN CORPUSCULAR HGB 31.9 pg (27.0-31.0); MEAN CORPUSCULAR HGB CONC 32.5 g/dl (33.0-37.0); MEAN PLATELET VOLUME 8.6 fl (9.6-12.3); MONO # 0.2 10*3/uL (0.1-1.0); MONO % 3.6 % (3.0-9.0); NEUT # 5.7 10*3/uL (2.3-7.9); NEUT % 89.1 % (47.0-73.0); PLATELET COUNT AUTOMATED 235 10*3/uL (130-400); RED BLOOD COUNT 3.26 10*6/uL (4.10-5.10); RED CELL DISTRI WIDTH 13.5 % (0-14.5); WHITE BLOOD COUNT 6.4 10*3/uL (4.8-10.8)
[2016-08-27 06:44] LABS: BUN 17 mg/dl (7-24); CARBON DIOXIDE 25 mmol/L (21-32); CHLORIDE 109 mmol/L (98-107); CHOLESTEROL 171 mg/dL (<200); EST GLOM FILT AFRICAN AMERICAN > 60 ml/min; GLUCOSE 143 mg/dL (65-99); HDL CHOLESTEROL 51 mg/dl (40-60); LDL CHOLESTEROL 110 mg/dL (9-159); MAGNESIUM 2.2 mg/dL (1.5-2.1); PHOSPHOROUS 3.3 mg/dL (2.5-4.9); SODIUM 141 mmol/L (136-145); TRIGLYCERIDES 52 mg/dl (<150); VLDL CHOLESTEROL 10 mg/dL (6-40)
[2016-08-27 06:45] LABS: HEMOGLOBIN A1c 5.6 % (4.8-5.6)
[2016-08-27 06:50] LABS: THYROID STIM HORMONE (HS) 0.589 uIU/ml (0.358-4.75)
[2016-08-27 07:28] LABS: VITAMIN D, 25-HYDROXY 32.4 ng/mL (30-100)
[2016-08-27 07:29] LABS: FOLIC ACID 20.99 ng/mL (>5.38)
[2016-08-27 08:00] VITALS: BP 141/86
[2016-08-27 12:00] VITALS: BP 141/84
[2016-08-27 16:00] VITALS: BP 131/74
[2016-08-27 20:00] VITALS: BP 151/80
[2016-08-28] VITALS: BP 148/66
[2016-08-28 02:26] VITALS: BP 148/66
[2016-08-28 06:22] LABS: BASO % 0.1 % (0.0-1.0); HEMATOCRIT 31.9 % (37.0-47.0); HEMOGLOBIN 10.1 g/dl (12.0-16.0); IG # 0.1 10*3/uL (0.0-0.1); LYMPH # 0.6 10*3/uL (1.3-4.4); LYMPH % 6.2 % (27.0-41.0); MEAN CELL VOLUME 100.6 fl (81.0-99.0); MEAN CORPUSCULAR HGB 31.9 pg (27.0-31.0); MEAN CORPUSCULAR HGB CONC 31.7 g/dl (33.0-37.0); MEAN PLATELET VOLUME 9.5 fl (9.6-12.3); MONO # 0.3 10*3/uL (0.1-1.0); MONO % 3.5 % (3.0-9.0); NEUT # 7.9 10*3/uL (2.3-7.9); NEUT % 89.4 % (47.0-73.0); PLATELET COUNT AUTOMATED 272 10*3/uL (130-400); RED BLOOD COUNT 3.17 10*6/uL (4.10-5.10); RED CELL DISTRI WIDTH 13.8 % (0-14.5); WHITE BLOOD COUNT 8.8 10*3/uL (4.8-10.8)
[2016-08-28 06:47] LABS: BUN 26 mg/dl (7-24); CARBON DIOXIDE 23 mmol/L (21-32); CHLORIDE 110 mmol/L (98-107); EST GLOM FILT AFRICAN AMERICAN > 60 ml/min; GLUCOSE 154 mg/dL (65-99); POTASSIUM 3.8 mmol/L (3.5-5.1); SODIUM 144 mmol/L (136-145)
[2016-08-28 08:00] VITALS: BP 132/82
[2016-08-28 12:00] VITALS: BP 133/56
[2016-08-28] MEDS ORDERED: OXYGEN NAS (14:02)
[2016-08-28 16:00] VITALS: BP 145/88
[2016-08-28 20:00] VITALS: BP 151/80
[2016-08-29] VITALS: BP 150/95
[2016-08-29 08:00] VITALS: BP 152/98
[2016-08-29 09:24] LABS: BASO % 0.1 % (0.0-1.0); HEMATOCRIT 35.2 % (37.0-47.0); HEMOGLOBIN 11.3 g/dl (12.0-16.0); IG # 0.1 10*3/uL (0.0-0.1); LYMPH # 0.9 10*3/uL (1.3-4.4); LYMPH % 9.4 % (27.0-41.0); MEAN CORPUSCULAR HGB 32.1 pg (27.0-31.0); MEAN CORPUSCULAR HGB CONC 32.1 g/dl (33.0-37.0); MONO # 0.3 10*3/uL (0.1-1.0); MONO % 3.1 % (3.0-9.0); NEUT % 86.7 % (47.0-73.0); PLATELET COUNT AUTOMATED 288 10*3/uL (130-400); RED BLOOD COUNT 3.52 10*6/uL (4.10-5.10); RED CELL DISTRI WIDTH 14.1 % (0-14.5); WHITE BLOOD COUNT 9.2 10*3/uL (4.8-10.8)
[2016-08-29 09:41] LABS: ALBUMIN 3.1 gm/dl (3.1-4.5); ALKALINE PHOSPHATASE 67 U/L (45-117); BILIRUBIN, TOTAL 0.9 mg/dl (0.2-1.0); BUN 31 mg/dl (7-24); CARBON DIOXIDE 21 mmol/L (21-32); CHLORIDE 112 mmol/L (98-107); EST GLOM FILT AFRICAN AMERICAN > 60 ml/min; GLUCOSE 152 mg/dL (65-99); MAGNESIUM 2.4 mg/dL (1.5-2.1); PHOSPHOROUS 3.2 mg/dL (2.5-4.9); POTASSIUM 4.2 mmol/L (3.5-5.1); SGOT/AST 52 IU/L (3-35); SGPT/ALT 15 U/L (12-78); SODIUM 142 mmol/L (136-145); TOTAL PROTEIN 6.5 gm/dL (6.4-8.2)
[2016-08-29 09:47] LABS: ABG BASE EXCESS -2.3 mmol/L (-2.0-2.0); ABG CO2 CONTENT 23.2 mmol/L (23-27); ABG TEMPERATURE 99.2 F (98.0-99.0); ARTERIAL BLOOD GAS PH 7.371 (7.35-7.45)
[2016-08-29 10:00] VITALS: BP 138/97
[2016-08-29 12:00] VITALS: BP 129/84
[2016-08-29 14:44] LABS: BILIRUBIN NEGATIVE (NEGATIVE); BLOOD 2+ (NEGATIVE); CLARITY CLEAR (CLEAR); COLOR YELLOW (YELLOW); GLUCOSE NEGATIVE (NEGATIVE); KETONE NEGATIVE (NEGATIVE); LEUKO ESTERASE NEGATIVE (NEGATIVE); NITRITE NEGATIVE (NEGATIVE); PH 5.5 (5.0-9.0); PROTEIN NEGATIVE (NEGATIVE); SPECIFIC GRAVITY 1.015 (1.005-1.030); UROBILINOGEN 0.2 E.U./dl (0.2-1.0)
[2016-08-29 14:46] LABS: LA>2 REFLEX 2 HR DRAW NOW
[2016-08-29 14:59] LABS: BACTERIA TRACE; RBC 41-50 rbc/hpf (0-2); URINE REFLEX COMMENT YES (NO)
[2016-08-29 15:23] LABS: LA>2 RFLX FOLLOW UP AT 2 HRS 2.2 mmol/L (0.4-2.0)
[2016-08-29 16:00] VITALS: BP 121/82; BP 146/61
[2016-08-29 17:16] LABS: LA>2 REFLEX 4 HR DRAW NOW
[2016-08-29 20:00] VITALS: BP 144/84
[2016-08-30] VITALS: BP 132/78
[2016-08-30 04:00] VITALS: BP 137/85
[2016-08-30 05:47] LABS: ALBUMIN 2.9 gm/dl (3.1-4.5); ALKALINE PHOSPHATASE 59 U/L (45-117); BILIRUBIN, TOTAL 0.8 mg/dl (0.2-1.0); BUN 36 mg/dl (7-24); CARBON DIOXIDE 25 mmol/L (21-32); CHLORIDE 107 mmol/L (98-107); EST GLOM FILT AFRICAN AMERICAN > 60 ml/min; GLUCOSE 154 mg/dL (65-99); MAGNESIUM 2.6 mg/dL (1.5-2.1); PHOSPHOROUS 3.3 mg/dL (2.5-4.9); POTASSIUM 4.2 mmol/L (3.5-5.1); SGOT/AST 45 IU/L (3-35); SGPT/ALT 68 U/L (12-78); SODIUM 142 mmol/L (136-145)
[2016-08-30 05:59] LABS: BASO % 0.2 % (0.0-1.0); HEMATOCRIT 32.8 % (37.0-47.0); HEMOGLOBIN 10.9 g/dl (12.0-16.0); LYMPH # 0.7 10*3/uL (1.3-4.4); LYMPH % 12.5 % (27.0-41.0); MEAN CELL VOLUME 97.6 fl (81.0-99.0); MEAN CORPUSCULAR HGB 32.4 pg (27.0-31.0); MEAN CORPUSCULAR HGB CONC 33.2 g/dl (33.0-37.0); MEAN PLATELET VOLUME 9.3 fl (9.6-12.3); MONO # 0.3 10*3/uL (0.1-1.0); MONO % 5.3 % (3.0-9.0); NEUT # 4.8 10*3/uL (2.3-7.9); NEUT % 81.3 % (47.0-73.0); PLATELET COUNT AUTOMATED 253 10*3/uL (130-400); RED BLOOD COUNT 3.36 10*6/uL (4.10-5.10); RED CELL DISTRI WIDTH 13.7 % (0-14.5); WHITE BLOOD COUNT 5.9 10*3/uL (4.8-10.8)
[2016-08-30 08:00] VITALS: BP 118/80; BP 128/85
[2016-08-30 12:00] VITALS: BP 128/76
[2016-08-30 16:00] VITALS: BP 122/79
[2016-08-30 20:00] VITALS: BP 138/74
[2016-08-31] VITALS: BP 156/78
[2016-08-31 06:11] LABS: BASO % 0.2 % (0.0-1.0); HEMATOCRIT 34.5 % (37.0-47.0); HEMOGLOBIN 11.1 g/dl (12.0-16.0); IG # 0.1 10*3/uL (0.0-0.1); LYMPH # 0.7 10*3/uL (1.3-4.4); LYMPH % 13.5 % (27.0-41.0); MEAN CELL VOLUME 97.5 fl (81.0-99.0); MEAN CORPUSCULAR HGB 31.4 pg (27.0-31.0); MEAN CORPUSCULAR HGB CONC 32.2 g/dl (33.0-37.0); MEAN PLATELET VOLUME 9.4 fl (9.6-12.3); MONO # 0.3 10*3/uL (0.1-1.0); MONO % 5.3 % (3.0-9.0); NEUT # 4.1 10*3/uL (2.3-7.9); PLATELET COUNT AUTOMATED 268 10*3/uL (130-400); RED BLOOD COUNT 3.54 10*6/uL (4.10-5.10); RED CELL DISTRI WIDTH 13.2 % (0-14.5); WHITE BLOOD COUNT 5.1 10*3/uL (4.8-10.8)
[2016-08-31 06:25] LABS: BUN 44 mg/dl (7-24); CARBON DIOXIDE 31 mmol/L (21-32); CHLORIDE 103 mmol/L (98-107); EST GLOM FILT AFRICAN AMERICAN > 60 ml/min; GLUCOSE 164 mg/dL (65-99); MAGNESIUM 2.7 mg/dL (1.5-2.1); PHOSPHOROUS 3.7 mg/dL (2.5-4.9); POTASSIUM 3.5 mmol/L (3.5-5.1); SODIUM 142 mmol/L (136-145)
[2016-08-31 08:00] VITALS: BP 144/83
[2016-08-31 12:00] VITALS: BP 133/85
[2016-08-31 16:00] VITALS: BP 133/77
[2016-08-31 20:00] VITALS: BP 129/65
[2016-09-01] VITALS: BP 120/72
[2016-09-01 07:54] LABS: BUN 48 mg/dl (7-24); CARBON DIOXIDE 32 mmol/L (21-32); CHLORIDE 101 mmol/L (98-107); EST GLOM FILT AFRICAN AMERICAN > 60 ml/min; GLUCOSE 146 mg/dL (65-99); POTASSIUM 3.9 mmol/L (3.5-5.1); SODIUM 139 mmol/L (136-145)
[2016-09-01 08:00] VITALS: BP 132/81
[2016-09-01 12:00] VITALS: BP 122/70
[2016-09-01] MEDS ORDERED: DOXYCYCLINE100 M3 PO (15:06)
[2016-09-01] MEDS ORDERED: LISINOPRIL5 MG PO (15:06)
[2016-09-01] MEDS ORDERED: PREDNISONE10 MG PO (15:06)
[2016-09-01] MEDS ORDERED: CARVEDILOL6.25 MG PO (15:06)
[2016-09-01] MEDS ORDERED: FUROSEMIDE20 M1 PO (15:06)
[2016-09-01] MEDS ORDERED: KLOR-CON M2020 ME1 PO (15:09)
[2016-09-01 16:00] VITALS: BP 135/82
[2016-09-01 20:00] VITALS: BP 133/68
[2016-09-02] VITALS: BP 144/87
[2016-09-02 06:13] LABS: BUN 49 mg/dl (7-24); CARBON DIOXIDE 33 mmol/L (21-32); CHLORIDE 99 mmol/L (98-107); EST GLOM FILT AFRICAN AMERICAN > 60 ml/min; GLUCOSE 167 mg/dL (65-99); POTASSIUM 4.2 mmol/L (3.5-5.1); SODIUM 139 mmol/L (136-145)
[2016-09-02 08:02] VITALS: BP 136/88
[2016-09-02 12:00] VITALS: BP 136/73
[2016-09-02 16:00] VITALS: BP 135/72
[2016-09-02 20:00] VITALS: BP 147/78
[2016-09-03] VITALS: BP 151/88
[2016-09-03 06:13] LABS: BASO % 0.2 % (0.0-1.0); EOS % 0.3 % (1.0-4.0); HEMATOCRIT 36.2 % (37.0-47.0); HEMOGLOBIN 11.8 g/dl (12.0-16.0); IG # 0.1 10*3/uL (0.0-0.1); LYMPH # 1.5 10*3/uL (1.3-4.4); LYMPH % 13.9 % (27.0-41.0); MEAN CELL VOLUME 97.1 fl (81.0-99.0); MEAN CORPUSCULAR HGB 31.6 pg (27.0-31.0); MEAN CORPUSCULAR HGB CONC 32.6 g/dl (33.0-37.0); MEAN PLATELET VOLUME 8.9 fl (9.6-12.3); MONO # 0.8 10*3/uL (0.1-1.0); MONO % 7.7 % (3.0-9.0); NEUT # 8.3 10*3/uL (2.3-7.9); NEUT % 76.8 % (47.0-73.0); PLATELET COUNT AUTOMATED 286 10*3/uL (130-400); RED BLOOD COUNT 3.73 10*6/uL (4.10-5.10); RED CELL DISTRI WIDTH 13.2 % (0-14.5); WHITE BLOOD COUNT 10.9 10*3/uL (4.8-10.8)
[2016-09-03 06:45] LABS: BUN 40 mg/dl (7-24); CARBON DIOXIDE 32 mmol/L (21-32); CHLORIDE 100 mmol/L (98-107); EST GLOM FILT AFRICAN AMERICAN > 60 ml/min; GLUCOSE 114 mg/dL (65-99); POTASSIUM 3.7 mmol/L (3.5-5.1); SODIUM 140 mmol/L (136-145)
[2016-09-03 08:00] VITALS: BP 139/77
[2016-09-03 12:00] VITALS: BP 106/69
[2016-09-03 16:00] VITALS: BP 129/63
[2016-09-03 20:00] VITALS: BP 141/67
[2016-09-04] VITALS: BP 134/78
[2016-09-04 06:38] LABS: CARBON DIOXIDE 36 mmol/L (21-32); CHLORIDE 98 mmol/L (98-107); EST GLOM FILT AFRICAN AMERICAN > 60 ml/min; GLUCOSE 99 mg/dL (65-99); POTASSIUM 3.4 mmol/L (3.5-5.1); SODIUM 140 mmol/L (136-145)
[2016-09-04 06:48] LABS: BUN 28 mg/dl (7-24)
[2016-09-04 08:00] VITALS: BP 131/58
[2016-09-04 12:00] VITALS: BP 128/60
[2016-09-04 16:00] VITALS: BP 104/50
== END 2016-09-04 17:05 | disposition home health service (06) | DRG 871 ==
LOC: ED 10:21 → EDHOLD 12:06 → 5E 12:06 → 4E 12:06 → 5E 12:30 → ICCU 08-29 09:20 → 4E 08-30 18:06
PROVIDERS: Hospitalist; Internal Medicine; Internal Medicine Cardiovascular Disease; Internal Medicine Critical Care Medicine; Nurse Practitioner Adult Health; Nurse Practitioner Family
DX: A41.9 Sepsis, unspecified organism (principal); J69.0 Pneumonitis due to inhalation of food and vomit; J96.01 Acute respiratory failure with hypoxia; I50.41 Acute combined systolic (congestive) and diastolic (congestive) heart failure; G20 Parkinson's disease; E83.41 Hypermagnesemia; R13.12 Dysphagia, oropharyngeal phase; I11.0 Hypertensive heart disease with heart failure; Z99.81 Dependence on supplemental oxygen; E78.5 Hyperlipidemia, unspecified; K59.00 Constipation, unspecified; Z96.659 Presence of unspecified artificial knee joint; I34.0 Nonrheumatic mitral (valve) insufficiency; J20.9 Acute bronchitis, unspecified; I25.5 Ischemic cardiomyopathy; Z90.49 Acquired absence of other specified parts of digestive tract; Z82.49 Family history of ischemic heart disease and other diseases of the circulatory system; Z83.3 Family history of diabetes mellitus; Z88.6 Allergy status to analgesic agent; Z79.1 Long term (current) use of non-steroidal anti-inflammatories (NSAID); Z79.899 Other long term (current) drug therapy